=== PATIENT | male | born 1960 | race Caucasian/White ===

== ENCOUNTER 2024-12-31 11:40 | Outpatient (CLI) | payer MEDICARE, SELFPAY ==
--- OUTSIDE RECORDS SUMMARY | 2024-12-31 12:18 | XMS_ITS | Referral Summary ---
Author Organization [facility] [address] Address [address] [place] [address] Care Team Providers Care Jig Grinder Set Up Operator Name Role Phone Florencio Rees DO Primary Care Provider [phone]- [phone] Encounters Date Type Department Care Team Description 12/24/2024 10:25 AM CDT Lab [address] [address] Pre-operative exam 12/24/2024 10:23 AM CDT - 12/24/2024 11:59 PM CDT Hospital Encounter [facility] [address] [place] [address] Pre-operative exam Discharge Disposition: Discharge to home or self care 12/24/2024 10:22 AM CDT - 12/24/2024 11:59 PM CDT Hospital Encounter [facility] [address] [place] [address] Pre-operative exam Discharge Disposition: Discharge to home or self care 12/10/2024 Telephone [facility] Orthoped[facility] Sports Medicine [address] [place] [address] [place] [phone] Kenton German MD Surgery Clearance 12/10/2024 Orders Only [facility] Orth[facility] and Sports Medicine [address] [place] [address] [address] [address] Kenton German MD S/P total knee arthroplasty, left (Primary Dx) 12/10/2024 9:15 AM CDT Office Visit [facility] Orth[facility]ics and Sports Medicine [address] [place] [address] [address] [place] [phone] Kenton German MD Pre-operative exam (Primary Dx); Acute pain of right knee; Primary osteoarthritis of both knees; Primary osteoarthritis of left knee 12/03/2024 10:45 AM CDT Ancillary Procedure [facility] Imaging at [address] [address] Acute pain of right knee 12/03/2024 11:00 AM CDT Office Visit [facility] and Primary Care at [address] [place] [address] Carlos La DO Primary osteoarthritis of both knees (Primary Dx); Acute pain of right knee from Last 3 Months Allergies No known active allergies Medications aspirin 81 mg chewable tablet Take 1 tablet (81 mg total) by mouth daily 5 05/10/2019 Active nitroglycerin (NITROSTAT) 0.4 mg SL tablet Take 1 tablet (0.4 mg total) by mouth as needed 2 04/15/2019 Active Active Problems Problem Noted Date Diagnosed Date 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 09/05/2019 History of coronary artery stent placement 09/05 Social History Tobacco Use Types Packs/Day Years Used Date Smoking Tobacco: Former Smokeless Tobacco: Never Tobacco Cessation:Counseling Given: Not Answered Alcohol Use Standard Drinks/Week Comments Yes 15 (1 standard drink = 0.6 oz pu re alcohol) AUDIT-C Answer Date Recorded Frequency of Alcohol Consumption 2-3 times a wee k 05/20/2019 Average Number of Drinks 1 or 2 019 Frequency of Binge Drinking Not on file 04/29 Sex and Gender Information Value Date Recorded Sex Assigned at Not on file Legal Sex Male 5:22 PM [employer] Gender Identity Not on file Sexual Orientation Not on file Last Filed Vital Signs Vital Sign Reading Time Taken Comments Blood Pressure 155/97 12/10/2024 9:04 AM CDT Pulse 79 12/10/2024 9:04 AM CDT Temperature - - Respiratory Rate 16 09/23/2024 10:32 AM [employer] Oxygen Saturation 97% 09/20/2022 9:30 AM [employer] Inhaled Oxygen Concentration - - Weight 76.7 kg (169 lb) 12/10/2024 9:04 AM CDT Height 177.8 cm (5' 10 ) 12/10/2024 9:04 AM CDT Body Mass Index 24.25 12/10/2024 9:04 AM CDT Plan of Treatment Not on file Procedures Procedure Name Priority Date/Time Associated Diagnosis Comments XR CHEST PA LATERAL 2 VIEWS Schedule Routine, Read Routine (OP Routine) 12/24/2024 11:01 AM CDT Pre-operative exam ECG 12-LEAD Routine 12/24/2024 10:52 AM CDT Pre-operative exam EGFR Routine 12/24/2024 10:36 AM CDT Pre-operative exam DIFFERENTIAL AUTO Routine 12/24/2024 10: 36 AM CDT Pre-operative exam HEMOGLOBIN A1C Routine 12/24/2024 10:36 AM CDT Pre-operative exam COMPREHENSIVE METABOLIC PANEL Routine 12/24/2024 10:36 AM CDT Pre-operative exam CBC WITH AUTO DIFFERENTIAL Routine 12/24/2024 10:36 AM CDT Pre-operative exam URINALYSIS AND REFLEX TO MICROSCOPIC AND CULTURE Routine 12/24/2024 10:36 AM CDT Pre-operative exam XR KNEE BILATERAL 4 OR MORE VIEWS Schedule Routine, Read Routine (OP Routine) 12/03/2024 10:54 AM CDT Acute pain of right knee from Last 3 Months Results * XR Chest Pa Lateral 2 Views (12/24/2024 11:01 AM CDT) Anatomical Region Laterality Modality Body, Chest N/A Computed Radiogr aphy 12/24/2024 5:16 PM CDT Narrative 12/24/2024 5:17 PM CDT EXAM DESCRIPTION: XR CHEST PA LATERAL 2 VIEWS REASON FOR STUDY: Pre-operative Exam Pre-op Right knee replacement January 10, 2025 Stent placed in 2018 No chest complaints Former smoker TECHNIQUE: Frontal and lateral radiographic views of the chest were acquired. COMPARISON: None Available FINDINGS: LUNGS/PLEURA: There is no focal infiltrate or evidence of pneumothorax. No significant pleural effusion. HEART/MEDIASTINUM: The heart size is normal. Normal mediastinal and hilar contours. LINES/TUBES: None. BONES: No acute findings. OTHER: No other significant finding. IMPRESSION: No acute cardiopulmonary abnormality. THIS IS AN ELECTRONICALLY VERIFIED FINAL REPORT 12/24/2024 5:17 PM - Electronically signed by Jose Manuel Alberto M.D. RW: CONOR Report ID: [id number] Reading Location: [id number] Procedure Note Jose Manuel Alberto MD - 12/24/2024 EXAM DESCRIPTION: XR CHEST PA LATERAL 2 VIEWS REASON FOR STUDY: Pre-operative Exam Pre-op Right knee replacement January 10, 2025 Stent placed in 2019 No chest complaints Former smoker TECHNIQUE: Frontal and lateral radiographic views of the chest wereacquired. COMPARISON: None Available FINDINGS: LUNGS/PLEURA: There is no focal infiltrate or evidence of pneumothorax.No significant pleural effusion. HEART/MEDIASTINUM: The heart size is normal. Normal mediastinal and hilar contours. LINES/TUBES: None. BONES: No acute findings. OTHER: No other significant finding. IMPRESSION: No acute cardiopulmonary abnormality. THIS IS AN ELECTRONICALLY VERIFIED FINAL REPORT 12/24/2024 5:17 PM - Electronically signed by Jose Manuel Alberto M.D. RW: CONOR Report ID: [id number] Reading Location: [id number] us Kenton German MD IMG XR PROCEDURES Final Result * ECG 12 lead (12/24/2024 10:52 AM CDT) 12/24/2024 10:5 7 [address] [facility] - 12/24/2024 11:42 AM CDT Vent Rate: 81 bpm RR Interval: 739 msec NM Interval: 145 msec QRS Duration: 91 msec QT Interval: 363 msec QTC Interval: 400 msec P-R-T [place]: 73 - -26 - 57 degrees IMPRESSION: SINUS RHYTHM WITH OCCASIONAL VENTRICULAR PREMATURE COMPLEXES POSSIBLE LEFT ATRIAL ENLARGEMENT [-0.1mV P-WAVE IN V1/V2] BORDERLINE LEFT AXIS DEVIATION [QRS AXIS < -20] BORDERLINE ECG Electronically Signed By: Sebastian Davidson MD us Kenton German MD ECG ORDERABLES Final Re sult [facility] * eGFR (12/24/2024 10:36 AM CDT) eGFR >90 >=60 mL/min/1. 73 m2 Comment: Interpretive Data Reference Interval Normal >/= 90 mL/min/1.73m2 Mildly decreased* 60 - 89 mL/min/1.73m2 Mildly to moderately decreased 45 - 59 mL/min/1.73m2 Moderately to severely decreased 30 - 44 mL/min/1.73m2 Severely decreased 15 - 29 mL/min/1.73m2 Kidney Failure < 15 mL/min/1.73m2 *Relative to young adult level Estimated glomerular filtration rate is determined by the 2020 CKD-EPI equation recommended by the National Kidney Foundation (A Unifying Approach to GFR Estimation: Recommendations of the NKF-ASK Task Force on Reassessing the Inclusion of Race in Diagnosing Kidney Disease, JASN 2020). The CKD-EPI equation should not be used for patients with unstable renal function and has not been validated in children and those over 70. Current interpretive data was last reviewed 2021. Blood 12/24/2024 10:3 6 AM CDT 12/24/2024 11:10 AM CDT us Kenton German MD LAB BLOOD ORDERABLES Fin al Result [facility] ([place] Department [place] [address] * (ABNORMAL) Differential, auto (12/24/2024 10:36 AM CDT) Neutrophil abs 7.53(H) 1.50 - 6.50 K/cumm Imm gran abs 0.11(H) 0.00 - 0.10 K/cumm [facility] ([place]) Lymphocyte abs 2.13 0.80 - 3.30 K/cumm [facility] ([place]) Monocyte abs 0.98(H) 0.20 - 0.80 K/cumm [facility] ([place]) Eosinophil abs 0.29 0.00 - 0.50 K/cumm [facility] ([place]) Basophil abs 0.08 0.00 - 0.10 K/cumm [facility] ([place]) Neutrophil pct 67.7 % [facility] ([place]) Comment: Interpretive Data Percent cell count reference ranges are not reported, since discordance with absolute values may lead to misinterpretation of CBC data. Current Interpretive Data was last revised on 2017. Imm gran pct 1.0 % [facility] ([place]) Comment: Interpretive Data Percent cell count reference ranges are not reported, since discordance with absolute values may lead to misinterpretation of CBC data. Current Interpretive Data was last revised on 2017. Lymphocyte pct 19.2 % [facility] ([place]) Comment: Interpretive Data Percent cell count reference ranges are not reported, since discordance with absolute values may lead to misinterpretation of CBC data. Current Interpretive Data was last revised on 2017. Monocyte pct 8.8 % [facility] ([place]) Comment: Interpretive Data Percent cell count reference ranges are not reported, since discordance with absolute values may lead to misinterpretation of CBC data. Current Interpretive Data was last revised on 2017. Eosinophil pct 2.6 % [facility] ([place]) Comment: Interpretive Data Percent cell count reference ranges are not reported, since discordance with absolute values may lead to misinterpretation of CBC data. Current Interpretive Data was last revised on 2017. Basophil pct 0.7 % [facility] ([place]) Comment: Interpretive Data Percent cell count reference ranges are not reported, since discordance with absolute values may lead to misinterpretation of CBC data. Current Interpretive Data was last revised on 2017. Blood 12/24/2024 10:3 6 AM CDT 12/24/2024 11:11 AM CDT us Kenton German MD LAB BLOOD ORDERABLES Fin al Result [facility] ([place]) [facility] Department [place] [address] * Urinalysis reflex to microscopic and culture Urine (12/24/2024 10:36 AM CDT) Color, ur Yellow Yellow Clarity, ur Clear Clear [facility] ([place]) Specific gravity, ur 1.021 1.003 - 1.030 [facility] ([place]) pH, urine 8.0 [facility] ([facility]) Comment: Interpretive Data U rine pH is affected by diet, medications, systemic acid-base disturbances, and renal tubular function. pH may affect urinary stone formation. For example, urine pH below 6.0 may help reduce the tendency for calcium phosphate stones and pH greater than 6.0 may reduce the tendency for uric acid stone formation. Source: [facility] Current Interpretive Data was last revised on 2017 Protein, ur ql Trace Negative [facility] ([place]) Glucose, ur ql Negative Negative [facility] ([place]) Ketones, ur Negative Negative [facility] ([place]) Bilirubin, ur Negative Negative [facility] ([place]) Blood, ur Negative Negative [facility] ([place]) Urobilinogen, ur <2.0 <2.0 mg/dL [facility] ([place]) Nitrite, ur Negative Negative [facility] ([place]) Leukocyte esterase, ur Negative Negative [facility] ([place]) UA reflex comment Reflex conditions for microscopic UA and culture not met. [facility] ([place]) Urine 12/24/2024 10:3 6 AM CDT 12/24/2024 11:18 AM CDT us Kenton German MD LAB MICROBIOLOGY - GENER AL ORDERABLES Final Result [facility] ([place] Department [place] [address] * (ABNORMAL) CBC with auto differential (12/24/2024 10:36 AM CDT) WBC 11.12(H) 3.80 - 9.90 K/cumm Hgb 13.0 13.0 - 17.5 g/dL [facility] ([facility]) Hct 38.5(L) 38.9 - 50.3 % [facility] Plt 463(H) 150 - 400 K/cumm [facility] ([facility]) MPV 8.5(L) 9.1 - 12.3 fL [facility] RBC 4.51 4.30 - 5.80 M/cumm [facility] MCV 85.4 81.3 - 96.4 fL [facility] MCH 28.8 27.1 - 33.3 pg [facility] MCHC 33.8 32.3 - 35.7 g/dL [facility] RDW CV 13.4 11.1 - 14.9 % [facility] RDW SD 41.3 35.7 - 48.[address] [facility] ([facility]) NRBC abs 0.00 0.00 - 0.01 K/cumm [facility] Blood 12/24/2024 10:3 6 AM CDT 12/24/2024 11:11 AM CDT Kenton German MD LAB BLOOD ORDERABLES Fin al Result [facility] Department [place] [address] * Hemoglobin A1c (12/24/2024 10:36 AM CDT) [facility] Hgb A1C 5.6 4.0 - 5.6 % Estimated Average Glucose 114 mg/dL [facility] ([facility]) Comment: The ADA recommends reporting an estimated Average Glucose (eAG) with all Hemoglobin A1c results using the equation derived from a study of 507 normal and diabetic adults. Minority populations were underrepresented and children were not included. (Diabetes Care 31:2833-3436, 2008). The eAG is not equivalent to a fasting glucose. Blood 12/24/2024 10:3 6 AM CDT 12/24/2024 11:10 AM CDT us Kenton German MD LAB BLOOD ORDERABLES Fin al Result [facility] ([place]) [facility] Department [place] [address] * (ABNORMAL) Comprehensive metabolic panel (12/24/2024 10:36 AM CDT) Sodium 133(L) 135 - 145 mmol/L Potassium, pl 3.9 3.3 - 4.9 mmol/L [facility] ([place]) Chloride 97 97 - 110 mmol/L [facility] ([place]) CO2 19(L) 22 - 32 mmol/L [facility] ([place]) Anion gap 16(H) 2 - 15 mmol/L [facility] ([place]) BUN 11 6 - 25 mg/dL [facility] ([place]) Creatinine 0.78(L) 0.80 - 1.30 mg/dL [facility] ([place]) Glucose 104 70 - 199 mg/dL [facility] ([place]) Comment: Interpretive Data Fasting glucose >/= 126 mg/dl is diagnostic for diabetes. Fasting is defined as no caloric intake for at least 8 hours. Fasting glucose between 100 mg/dl to 125 mg/dl is diagnostic of prediabetes. In a patient with classic symptoms of hyperglycemia or hyperglycemic crisis, a random glucose >/= 200 mg/dl is diagnostic for diabetes. In the absence of unequivocal hyperglycemia, results should be confirmed by repeat testing. The classification and Diagnosis of Diabetes Diabetes Care 2021; 46: S19-S40. Current interpretive data was last revised 2022. Calcium 9.8 8.5 - 10.3 mg/dL [facility] ([place]) Bilirubin, total 0.4 0.1 - 1.2 mg/dL [facility] ([place]) Protein, pl 7.6 6.5 - 8.5 g/dL [facility] ([place]) Albumin 3.4(L) 3.5 - 5.0 g/dL [facility] ([place]) Alk phos 96 40 - 130 Units/L [facility]) ALT 16 7 - 55 Units/L [facility]) AST 14 10 - 50 Units/L [facility] ([facility]) Blood 12/24/2024 10:3 6 AM CDT 12/24/2024 11:10 AM CDT us Kenton German MD LAB BLOOD ORDERABLES Fin al Result [facility] ([place] Department [place] [address] * XR Knee Bilateral 4 or More Views (12/03/2024 10:54 AM CDT) Anatomical Region Laterality Modality Lower Extremities, Knee Digital Radiography 12/03/2024 7:20 PM CDT Narrative 12/03/2024 7:23 PM CDT EXAM DESCRIPTION: XR KNEE BILATERAL 4 OR MORE VIEWS REASON FOR STUDY: pain Bilateral knee pain since August. No recent injury. No prior surgery to either knee. TECHNIQUE: 5 radiographic view(s) of the bilateral knees . COMPARISON: Left knee comparison 09/23/2024. FINDINGS: BONES/JOINTS: Severe medial joint space narrowing of the left knee with fgtl-cv-[id number] eburnation and subchondral cyst formation. Only mild medial joint space narrowing of the right knee. There is mild patellofemoral arthritic change bilaterally..Slight valgus configuration of the positioning of the knees.. SOFT TISSUES: There is fullness of soft tissue in the suprapatellar bursa bilaterally suggesting bilateral small joint effusions, left larger than right. IMPRESSION: Severe medial joint space narrowing of the left knee with cmwt-ek-[id number] eburnation and subchondral cyst formation. Mild medial joint space narrowing of the right knee. Mild patellofemoral arthritic change bilaterally. Bilateral suprapatellar joint effusions. THIS IS AN ELECTRONICALLY VERIFIED FINAL REPORT 12/03/2024 7:23 PM - Electronically signed by Irma Rodriguez.D. LC T: Report ID: [id number] Reading Location: [place] [address] Procedure Note Xi Norton MD - 12/03/2024 EXAM DESCRIPTION: XR KNEE BILATERAL 4 OR MORE VIEWS REASON FOR STUDY: pain Bilateral knee pain since August. No recent injury. No prior surgery to either knee. TECHNIQUE: 5 radiographic view(s) of the bilateral knees . COMPARISON: Left knee comparison 09/23/2024. FINDINGS: BONES/JOINTS: Severe medial joint space narrowing of the leftknee with lksb-hk-sxdv eburnation and subchondral cyst formation. Only mild medial joint space narrowing of the right knee. There is mildpatellofemoral arthritic change bilaterally..Slight valgus configuration of thepositioning of the knees.. SOFT TISSUES: There is fullness of soft tissue in the suprapatellar bursa bilaterally suggesting bilateral small joint effusions, left larger than right. IMPRESSION: Severe medial joint space narrowing of the left knee with eecy-ho-klel eburnation and subchondral cyst formation. Mild medial joint space narrowing of the right knee. Mild patellofemoral arthritic change bilaterally. Bilateral suprapatellar joint effusions. THIS IS AN ELECTRONICALLY VERIFIED FINAL REPORT 12/03/2024 7:23 PM - Electronically signed by Irma DÍAZ T: Report ID: [id number] Reading Location: [place] [address] Carlos La DO IMG XR PROCEDURES Tiffanie l Result from Last 3 Months Insurance [facility] Care Teams Jig Grinder Set Up Operator Relationship Specialty Start Date End Date Florencio Rees DO PCP - General Internal Medicine 04/13/19
--- OUTSIDE RECORDS SUMMARY | 2024-12-31 12:18 | XMS_ITS | Clinical Summary ---
Author Organization [facility] Address [address] [place] [address] Care Team Providers Care Triage Nurse Name Role Phone None, Physician Primary Care Provider Unavailabl e Source Comments [facility],non-owned Affiliates and Associated Physician Practices is amultiple site organization consisting of ambulatory clinics and hospital sitesin [place], [place], [place] and [place]. This disclosure is being madepursuant to the Care Everywhere program and may not contain all information available regarding this patient. Last updated 18.[employer] Allergies No known active allergies Medications * Be aware that medications may not be up to date on this document. Alwaysverify current medications with the patient. No known medications Active Problems Problem Noted Date Diagnosed Date S/P cervical spinal fusion 06/11/2024 Cervical stenosis of spinal canal 09/09/2022 Coronary artery disease invo lving [place] coronary artery of [place] heart without angina pectoris 09/05/2019 History of coronary artery stent placement 09/05 Social History Tobacco Use Types Packs/Day Years Used Date Smoking Tobacco: Former Smokeless Tobacco: Never Tobacco Cessation:Counseling Given: Not Answered Alcohol Use Standard Drinks/Week Comments Yes 0 (1 standard drink = 0.6 oz pur e alcohol) beer 1-2 daily AUDIT-C Answer Date Recorded Q1: How often do you have a drink containing alc ohol? Monthly or less 09/09/2022 Q2: How many drinks containi ng alcohol do you have on a typical day when you are drinking? 1 or 2 09/09/2022 Q3: How often do you have si x or more drinks on one occasion? Never 09/09/2022 Overall Financial Resource Strain (CARDIA) Answe r Date Recorded How hard is it for you to pa y for the very basics like food, housing, medical care, and heating? Not hard at all 09/09/2022 PHQ-2 Answer Date Recorded Patient Health Questionnaire-2 Score 0 06/10/2024 [facility] - Occupational Stress Questionnaire Answer Date Recorded Do you feel stress - tense, restless, nervous, or anxious, or unable to sleep at night because your mind is troubled all the time - these days? Not at all 09/09/2022 Hunger Vital Sign Answer Date Recorded Within the past 12 months, y ou worried that your food would run out before you got the money to buy more. Never true 09/09/19 23 Within the past 12 months, t he food you bought just didn't last and you didn't have money to get more. Never true 09/09/2022 PRAPARE - Transportation Answer Date Re corded In the past 12 months, has l ack of transportation kept you from medical appointments or from getting medications? No 08/28 In the past 12 months, has l ack of transportation kept you from meetings, work, or from getting things needed for daily living? No 09/09/2022 Housing Stability Vital Sign Answer Matt e Recorded In the last 12 months, was t here a time when you were not able to pay the mortgage or rent on time? No 09/09/2022 In the last 12 months, how many places have you lived? 1 09/09/2022 In the last 12 months, was t here a time when you did not have a steady place to sleep or slept in a nursing home (including now)? No 09/09/2022 Sex and Gender Information Value Date Recorded Sex Assigned at Not on file Legal Sex Male 10:31 AM CDT Gender Identity Not on file Sexual Orientation Not on file Last Filed Vital Signs Vital Sign Reading Time Taken Comments Blood Pressure 149/90 09/10/2022 7:29 AM [employer]ATH[facility] [employer] Pulse 66 09/10/2022 7:29 AM [employer]ATH[facility] Temperature 36.4 C (97.6 F) 09/10/2022 7:29 AM [employer]ATH[facility] CARVER Respiratory Rate 12 09/09/2022 1:15 PM [facility] Oxygen Saturation 96% 09/10/2022 7:29 AM [employer] [employer] Inhaled Oxygen Concentration - - Weight 81.4 kg (179 lb 6.4 oz) 06/11/2024 10:57 AM CDT Height 182.9 cm (6') 06/07/2023 9:16 AM CDT Body Mass Index 24.33 06/07/2023 9:16 AM CDT Plan of Treatment Health Maintenance Due Date Last Done Comments COLOGUARD (AGES 45-75) - COL ON CA SCREENING 1958 COLON MONITORING 1958 COLONOSCOPY - COLON CA SCREENING 1958 CT COLONOGRAPHY - COLON CA SCREENING 1960 Colorectal Cancer Screening 1958 FIT - COLON CA SCREENING 1958 FLEX SIG - COLON CA SCREENING 1958 MEDICARE AWV 12 MONTHS 1958 HEPATITIS C SCREENING 11/15/1976 DTAP/TDAP/TD VACCINES (1 - Tdap) 1977 PNEUMOCOCCAL VACCINE 50+ (1 of 1 - PCV) 2008 ZOSTER VACCINE (1 of 2) 2008 AAA SCREENING 11/21/2023 COVID-19 VACCINE (1 - 2023-2 5 season) 2024 DEPRESSION SCREENING 08/28/2024 INFLUENZA VACCINE (Season Ended) 2025 Respiratory Syncytial Virus (RSV) Vaccine Pt: or over 60 yrs (1 - 1-dose 75+ series) 2033 HEPATITIS B VACCINE Aged Out No longe r eligible based on patient's age to complete this topic HIB VACCINE Aged Out No longer eligi ble based on patient's age to complete this topic HPV VACCINE Aged Out No longer eligi ble based on patient's age to complete this topic MENINGOCOCCAL (Group B) VACC INE SHARED DECISION-MAKING Aged Out No longer eligibl e based on patient's age to complete this topic MENINGOCOCCAL GROUPS A/C/Y/W VACCINE Aged Out No longer eligible b ased on patient's age to complete this topic Medical Devices Implanted Type Area Manager Protein Device Identifier Shelf Expiration Date Model / Serial / Lot Graft Bone Grftn Dbm 5cc Ptty Jr Implanted:Qty: 1 on 09/09/2022 by Cory Frye MD at [facility] N/A: Spine Cervical [employer] [id number] / / Sapcer Crv 7d Peek [id number] Cohere Implanted:Qty: 2 on 09/09/2022 by Cory Frye MD at [facility] N/A: Spine Cervical Nuvasive 12/08/2026 [id number] / / [id number] Sapcer Crv 7d Peek [id number] Cohere Implanted:Qty: 1 on 09/09/2022 by Cory Frye MD at [facility] N/A: Spine Cervical Nuvasive 07/03/2027 [id number] / / [id number] Screw 15mm Implanted:Qty: 4 on 09/09/2022 by Cory Frye MD at [facility] N/A: Spine Cervical Nuvasive [id number] / / Screw 17mm Implanted:Qty: 4 on 09/09/2022 by Cory Frye MD at [facility] N/A: Spine Cervical Nuvasive [id number] / / Acp Plate 56mm Implanted:Qty: 1 on 09/09/2022 by Cory Frye MD at [facility] N/A: Spine Cervical Nuvasive [id number] / / Insurance MEDICARE [facility] Advance Directives * Full Code (Latest Code Status on File) Date Activated Date Inactivated Comments 09/09/2022 12:25 PM 09/10/2022 1:08 PM Care Teams Triage Nurse Relationship Specialty Start Date End Date None, Physician [address] [place] [address] PCP - General 06/11/24
--- OUTSIDE RECORDS SUMMARY | 2024-12-31 12:18 | XMS_ITS | Clinical Summary ---
Author Organization [facility] [address] Address [address] [place] [address] Care Team Providers Care Guest Relations Coordinator Name Role Phone Florencio Rees DO Primary Care Provider [phone]- [phone] Allergies No known active allergies Medications aspirin 81 mg chewable tablet Take 1 tablet (81 mg total) by mouth daily 5 05/10/2019 Active nitroglycerin (NITROSTAT) 0.4 mg SL tablet Take 1 tablet (0.4 mg total) by mouth as needed 2 04/15/2019 Active Active Problems Problem Noted Date Diagnosed Date Coronary artery disease invo lving [place] coronary artery of [place] heart without angina pectoris 09/05/2019 History of coronary artery stent placement 09/05 Encounters Date Type Department Care Team Description 12/24/2024 10:25 AM CDT Lab [address] [address] Pre-operative exam 12/24/2024 10:23 AM CDT - 12/24/2024 11:59 PM CDT Hospital Encounter [facility] [address] [place] [address] Pre-operative exam Discharge Disposition: Discharge to home or self care 12/24/2024 10:22 AM CDT - 12/24/2024 11:59 PM CDT Hospital Encounter [facility] [address] [place] [address] Pre-operative exam Discharge Disposition: Discharge to home or self care 12/10/2024 9:15 AM CDT Office Visit [facility] [address] [place] [address] [address] [place] [address] Kenton German MD Pre-operative exam (Primary Dx); Acute pain of right knee; Primary osteoarthritis of both knees; Primary osteoarthritis of left knee 12/10/2024 Telephone [facility] [address] [place] [address] [address] [place] [address] Kenton German MD Surgery Clearance 12/10/2024 Orders Only [facility] [address] [place] [address] [address] [place] [address] Kenton German MD S/P total knee arthroplasty, left (Primary Dx) 12/03/2024 11:00 AM CDT Office Visit [facility] at [address] [place] [address] Carlos La DO Primary osteoarthritis of both knees (Primary Dx); Acute pain of right knee 12/03/2024 10:45 AM CDT Ancillary Procedure [facility] at [address] [address] Acute pain of right knee from Last 3 Months Surgical History Surgery Date Site/Laterality Comments CARDIAC CATHETERIZATION CORONARY ANGIOPLASTY Medical History Medical History Date Comments Coronary artery disease Hyperlipidemia Family History Medical History Relation Name Comments Cancer Brother 3 Heart disease Father Heart failure Father Relation Name Status Comments Brother 1 Alive Brother 2 Alive Brother 3 Father Mother Alive Sister Alive Social History Tobacco Use Types Packs/Day Years [...] on file Legal Sex Male 5:22 PM [employer] Gender Identity Not on file Sexual Orientation Not on file Obstetrics History Last Filed Vital Signs Vital Sign Reading Time Taken Comments Blood Pressure 155/97 12/10/2024 9:04 AM CDT Pulse 79 12/10/2024 9:04 AM CDT Temperature - - Respiratory Rate 16 09/23/2024 10:32 AM [employer] Oxygen Saturation 97% 09/20/2022 9:30 AM [employer] Inhaled Oxygen Concentration - - Weight 76.7 kg (169 lb) 12/10/2024 9:04 AM CDT Height 177.8 cm (5' 10 ) 12/10/2024 9:04 AM CDT Body Mass Index 24.25 12/10/2024 9:04 AM CDT Plan of Treatment Health Maintenance Due Date Last Done Comments Colon Cancer Screening-Colonoscopy 1958 Depression Screening 1958 Hepatitis C Screening 1958 Prostate Cancer Screening-PSA 1958 DTaP/Tdap/Td Vaccine (1 - Tdap) 1969 Hepatitis B Screening 1976 Pneumococcal vaccine 65+ (1 of 1 - PCV) 2008 Zoster Vaccine (1 of 2) 2008 Fall Risk Assessment 03/12/2021 03/12/2020 Abdominal Aortic Aneurysm (AAA) Screen 11/21/2023 Well Visit 65+ 11/21/2023 Influenza Vaccine (Season Ended) 2025 Procedures Procedure Name Priority Date/Time Associated Diagnosis [...] Manuel Alberto M.D. RW: CONOR Report ID: [id number] Reading Location: [id number] Procedure Note Jose Manuel Alberto MD - [...] Manuel Alberto M.D. RW: CONOR Report ID: [id number] Reading Location: [id number] Kenton German MD IMG XR PROCEDURES Final Result * ECG 12 lead (12/24/2024 10:52 AM CDT) 12/24/2024 10:5 7 AM CDT Narrative [facility] - 12/24/2024 11:42 AM CDT Vent Rate: 81 bpm RR Interval: 739 msec SC Interval: 145 msec QRS Duration: 91 msec QT Interval: 363 msec QTC Interval: 400 msec P-R-T [place]: 73 - -26 - 57 degrees IMPRESSION: SINUS RHYTHM WITH OCCASIONAL VENTRICULAR PREMATURE COMPLEXES POSSIBLE LEFT ATRIAL ENLARGEMENT [-0.1mV P-WAVE IN V1/V2] BORDERLINE LEFT AXIS DEVIATION [QRS AXIS < -20] BORDERLINE ECG Electronically Signed By: Sebastian Davidson MD Kenton German MD ECG ORDERABLES Final Re sult [facility] * eGFR (12/24/2024 10:36 AM CDT) eGFR [...] BLOOD ORDERABLES Fin al Result [facility] ([place]) 1 [facility] Department [place] [address] * (ABNORMAL) Differential, auto (12/24/2024 10:36 AM [...] revised on 2017. Monocyte pct 8.8 % [facility] ([place]) Comment: Interpretive Data Percent cell count reference ranges are not reported, since discordance with absolute values may lead to misinterpretation of CBC data. Current Interpretive Data was last revised on 2017. Eosinophil pct 2.6 % MANUEL R MACKENZIE ([place]) Comment: Interpretive Data Percent cell count reference ranges are not reported, since discordance with absolute values may lead to misinterpretation of CBC data. Current Interpretive Data was last revised on 2017. Basophil pct 0.7 % [facility] ([place]) Comment: Interpretive Data Percent cell count reference ranges are not reported, since discordance with absolute values may lead to misinterpretation of CBC data. Current Interpretive Data was last revised on 2017. Blood 12/24/2024 10:3 6 AM CDT 12/24/2024 11:11 AM CDT us Kenton German MD LAB BLOOD ORDERABLES Fin al Result [facility] ([place]) 1 [facility] Department [place] [address] * Urinalysis reflex to microscopic and culture Urine (12/24/2024 10:36 AM CDT) Color, ur Yellow Yellow Clarity, ur Clear Clear ABDIRIZAK Mc ([place]) Specific gravity, ur 1.021 1.003 - 1.030 [facility] ([place]) pH, urine 8.0 [facility] ([place]) Comment: Interpretive Data U rine pH is affected by diet, medications, systemic acid-base disturbances, and renal tubular function. pH may affect urinary stone formation. For example, urine pH below 6.0 may help reduce the tendency for calcium phosphate stones and pH greater than 6.0 may reduce the tendency for uric acid stone formation. Source: [facility] [employer] Current Interpretive Data was last revised on 2017 Protein, ur ql Trace Negative CERNE R MACKENZIE ([place]) Glucose, ur ql Negative Negative CERNE [...] MICROBIOLOGY - GENER AL ORDERABLES Final Result [facility] ([place]) 1 [facility] Department [place] [address] * (ABNORMAL) CBC with auto differential (12/24/2024 10:36 AM CDT) WBC 11.12(H) 3.80 - 9.90 K/cumm Hgb 13.0 13.0 - 17.5 g/dL [facility] ([place]) Hct 38.5(L) 38.9 - 50.3 % [facility] ([place]) Plt 463(H) 150 - 400 K/cumm [facility] ([place]) MPV 8.5(L) 9.1 - 12.3 fL [facility] ([place]) RBC 4.51 4.30 - 5.80 M/cumm [facility] ([place]) MCV 85.4 81.3 - 96.4 fL [facility] ([place]) MCH 28.8 27.1 - 33.3 pg [facility] ([place]) MCHC 33.8 32.3 - 35.7 g/dL [facility] ([place]) RDW CV 13.4 11.1 - 14.9 % [facility] ([place]) RDW SD 41.3 35.7 - 48.1 fL [facility] ([place]) NRBC abs 0.00 0.00 - 0.01 K/cumm [facility] ([place]) Blood 12/24/2024 10:3 6 AM CDT 12/24/2024 11:11 AM CDT Kenton German MD LAB BLOOD ORDERABLES Fin al Result Performing Organization Address [facility] de Phone Number [facility] ([place]) [address] [place] [address] * Hemoglobin A1c (12/24/2024 10:36 AM CDT) Hgb A1C 5.6 4.0 - 5.6 % Estimated Average Glucose 114 mg/dL [facility] ([place]) Comment: The ADA recommends reporting an estimated Average Glucose (eAG) with all Hemoglobin A1c results using the equation derived from a study of 507 normal and diabetic adults. Minority populations were underrepresented and children were not included. (Diabetes Care 31:9484-4183, 2008). The eAG is not equivalent to a fasting glucose. Blood 12/24/2024 10:3 6 AM CDT 12/24/2024 11:10 AM CDT Kenton German MD LAB BLOOD ORDERABLES Fin al Result Performing Organization Address [facility] Co de Phone Number ABDIRIZAK [facility] ([place]) [address] [place] [address] * (ABNORMAL) Comprehensive metabolic panel (12/24/2024 10:36 AM CDT) Sodium 133(L) 135 - 145 mmol/L Potassium, pl 3.9 3.3 - 4.9 mmol/L [facility] ([place]) Chloride 97 97 - 110 mmol/L [facility] ([place]) CO2 19(L) 22 - 32 mmol/L [facility] ([place]) Anion gap 16(H) 2 - 15 mmol/L [facility] ([place]) BUN 11 6 - 25 mg/dL [facility] ([place]) Creatinine 0.78(L) 0.80 - 1.30 mg/dL [facility] ([place]) Glucose 104 70 - 199 [...] classification and Diagnosis of Diabetes Diabetes Care 202; 46: S19-S40. Current interpretive data was last [...] Fin al Result [facility] ([place]) 1 [facility] Department [place] [address] * XR Knee Bilateral 4 or More [...] space narrowing of the left knee with jdur-un-jhwa eburnation and subchondral cyst formation. Only mild medial joint space narrowing of the right knee. There is mild patellofemoral arthritic change bilaterally..Slight valgus configuration of the positioning of the knees.. SOFT TISSUES: There is fullness of soft tissue in the suprapatellar bursa bilaterally suggesting bilateral small joint effusions, left larger than right. IMPRESSION: Severe medial joint space narrowing of the left knee with mheq-an-fbld eburnation and subchondral cyst formation. Mild medial joint space narrowing of the right knee. Mild patellofemoral arthritic change bilaterally. Bilateral suprapatellar joint effusions. THIS IS AN ELECTRONICALLY VERIFIED FINAL REPORT 12/03/2024 7:23 PM - Electronically signed by Irma Norton M.D. T: Report ID: [id number] Reading Location: [id number] Procedure Note Xi Norton MD - 12/03/2024 EXAM DESCRIPTION: XR KNEE BILATERAL 4 OR MORE VIEWS REASON FOR STUDY: pain Bilateral knee pain since August. No recent injury. No prior surgery to either knee. TECHNIQUE: 5 radiographic view(s) of the bilateral knees . COMPARISON: Left knee comparison 09/23/2024. FINDINGS: BONES/JOINTS: Severe medial joint space narrowing of the leftknee with cugp-ju-ibti eburnation and subchondral cyst formation. Only mild medial joint space narrowing of the right knee. There is mildpatellofemoral arthritic change bilaterally..Slight valgus configuration of thepositioning of the knees.. SOFT TISSUES: There is fullness of soft tissue in the suprapatellar bursa bilaterally suggesting bilateral small joint effusions, left larger than right. IMPRESSION: Severe medial joint space narrowing of the left knee with samj-lu-rknd eburnation and subchondral cyst formation. Mild medial joint space narrowing of the right knee. Mild patellofemoral arthritic change bilaterally. Bilateral suprapatellar joint effusions. THIS IS AN ELECTRONICALLY VERIFIED FINAL REPORT 12/03/2024 7:23 PM - Electronically signed by Irma Norton M.D. LC T: Report ID: [id number] Reading Location: [id number] Carlos La DO IMG XR PROCEDURES Tiffanie l Result from Last 3 Months [facility] Care Teams Guest Relations Coordinator Relationship Specialty Start Date End Date Florencio Rees DO PCP - General Internal Medicine 04/13/19
[2024-12-31 20:05] LABS: Anion Gap 12 mmol/L (4-12); Blood Urea Nitrogen 20 mg/dL (9-20); Calcium 9.2 mg/dL (8.4-10.2); Carbon Dioxide 23 mmol/L (22-30); Chloride 99 mmol/L (98-107); Estimated Glomerular Filt Rate > 60; Glucose 83 mg/dL (65-110); Potassium 4.2 mmol/L (3.4-5.0); Sodium 134 mmol/L (137-145)
== END 2024-12-31 11:41 | disposition home or self-care (01) ==
PROVIDERS: PCP Internal Medicine; Visit Provider Internal Medicine
DX: E87.1 Hypo-osmolality and hyponatremia (principal); Z12.5 Encounter for screening for malignant neoplasm of prostate
CPT/HCPCS: 36415; 80048; 84153; G0103

== ENCOUNTER 2025-06-17 13:34 | Outpatient (CLI) | payer MEDICARE, SELFPAY ==
[2025-06-17 19:06] LABS: Hematocrit 43.3 % (42.0-52.0); Hemoglobin 13.9 g/dL (14.0-18.0); Immature Granulocyte Percent A 0.3 % (0-0.5); Lymphocytes Absolute Auto 2.24 K/mm3 (0.9-3.2); Mean Corpuscular HGB Conc 32.1 g/dl (32-36); Mean Corpuscular Hemoglobin 29.0 pg (26-34); Mean Corpuscular Volume 90.4 fl (80-100); Nucleated Red Blood Cells Absolute Auto 0.000 K/mm3 (0.0-0.012); Nucleated Red Blood Cells Perc 0.0 % (0.0-0.2); Platelet Count Result 382 k/mm3 (150-375); Red Blood Count 4.79 M/mm3 (4.6-6.20); White Blood Count 8.7 K/mm3 (4.5-10.0)
[2025-06-17 19:25] LABS: Alanine Aminotransferase 12 U/L (6-50); Albumin Level 3.9 g/dL (3.5-5.1); Alkaline Phosphatase 95 U/L (38-126); Anion Gap 9 mmol/L (4-12); Aspartate Amino Transferase 24 U/L (17-59); Bilirubin,Total 0.3 mg/dL (0.2-1.3); Blood Urea Nitrogen 14 mg/dL (9-20); CRP 3.3 mg/dL (<1.0); Calcium 9.1 mg/dL (8.4-10.2); Carbon Dioxide 26 mmol/L (22-30); Chloride 100 mmol/L (98-107); Estimated Glomerular Filt Rate > 60; Glucose 78 mg/dL (65-110); Potassium 4.1 mmol/L (3.4-5.0); Sodium 135 mmol/L (137-145); Total Protein 8.2 g/dL (6.3-8.2); Uric Acid 4.7 mg/dL (3.5-8.5)
[2025-06-17 20:06] LABS: MALB Creatinine Ratio 3.9 mg/g (0-30)
[2025-06-17 20:11] LABS: Hemoglobin A1C 4.9 % (<5.7)
[2025-06-18 18:08] LABS: ANA by IFA Rfx Titer/Pattern Negative (.)
== END 2025-06-17 13:35 | disposition home or self-care (01) ==
LOC: ANHGOSHLAB 13:34
PROVIDERS: PCP Internal Medicine; Visit Provider Clinical Nurse Specialist
DX: R73.01 Impaired fasting glucose (principal); M25.40 Effusion, unspecified joint; E87.1 Hypo-osmolality and hyponatremia
CPT/HCPCS: 36415; 80053; 82043; 83036; 84550; 85025; 85652; 86038; 86140; 86430